=== PATIENT | female | born 1995 | race Caucasian/White ===

== ENCOUNTER 2018-11-24 10:10 | Emergency (ER) | payer MEDICAID, OTHER ==
[~2018-11-24] VITALS: Ht 162.6 cm; Wt 41.0 kg
[2018-11-24 10:32] VITALS: BP 101/63
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
--- NOTE | 2018-11-24 10:51 | NUR ---
Patient ambulated to nurses station with sitter, requested to use satellite project site monitor's telephone, satellite project site monitor declined and patient ran out of department through ambulance bay doors. Dr. Jimenez notified that patient has eloped.
[2018-11-24] MEDS ORDERED: ZIPRASIDONE 20MG CAPSULE PO ONE (11:00)
== END 2018-11-24 10:56 | disposition left against medical advice (07) ==
LOC: ED 10:50
DX: F41.9 Anxiety disorder, unspecified (principal); Z76.0 Encounter for issue of repeat prescription
CPT/HCPCS: 99283